=== PATIENT | female | born 1945 | race Caucasian/White ===

== ENCOUNTER → 2021-07-17 09:43 | Outpatient (BNVA) | payer MEDICARE, MEDICAID, SELFPAY | PROVIDERS: PCP Family Medicine; Visit Provider Internal Medicine | DX: M25.50 Pain in unspecified joint (principal); M79.643 Pain in unspecified hand; E55.9 Vitamin D deficiency, unspecified; Z11.59 Encounter for screening for other viral diseases; Z11.1 Encounter for screening for respiratory tuberculosis; R79.89 Other specified abnormal findings of blood chemistry | CPT/HCPCS: 36415; 80053; 82728; 83540; 85025; 85651; 86140; 86160; 86162; 86200; 86235; 86255; 86376; 86431; 86480; 86704; 86803; 87340; 99204; 99214 ==

== ENCOUNTER 2021-07-17 11:28 | Outpatient (CLI) | payer MEDICARE, SELFPAY ==
[2021-07-17 12:04] LABS: Basophils # 0.1 10^3/uL (0.0-0.1); Basophils % 0.9 %; Eosinophils # 0.2 10^3/uL (0.0-0.8); Eosinophils % 1.7 %; Hematocrit 41.8 % (37.0-47.0); Hemoglobin 13.4 g/dL (11.5-15.3); Lymphocytes # 2.3 10^3/uL (0.8-4.8); Lymphocytes % 23.4 %; Mean Corpuscular HGB Conc 32.1 g/dL (30.0-36.0); Mean Corpuscular Hemoglobin 29.6 pg (28.0-34.0); Mean Corpuscular Volume 92.5 fl (81-99); Mean Platelet Volume 10.6 fL (7.4-10.4); Monocytes # 0.8 10^3/uL (0.2-0.9); Monocytes % 8.4 %; Neutrophils % 65.4 %; Nucleated Red Blood Cells % 0 %; Platelet Count 264 10^3/cmm (130-400); Red Blood Count 4.52 10^6/uL (4.1-5.3); Red Cell Distribution Width 12.7 % (12.1-15.1); White Blood Count 9.9 10^3/uL (4.0-10.0)
[2021-07-17 12:34] LABS: Alanine Aminotransferase 13 U/L (0-33); Albumin Level 4.2 g/dL (3.5-5.2); Alkaline Phosphatase 78 IU/L (35-105); Anion Gap 16.1 (5-19); Aspartate Amino Transferase 15 U/L (0-32); Blood Urea Nitrogen 18 mg/dL (8-23); C Reactive Protein 5.4 mg/L (0.0-4.9); Carbon Dioxide 24 mmol/L (22-29); Chloride 101 mmol/L (98-107); Ferritin 98 ng/mL (15-150); Globulin 3.1 g/dL (1.3-4.6); Glucose 86 mg/dL (65-115); Iron 71 ug/dL (37-145); Osmolality Calculated 285 mOsm/kg (285-295); Potassium 4.1 mmol/L (3.5-5.1); Sodium 137 mmol/L (136-145); Total Bilirubin 0.4 mg/dL (0.15-1.2); Total Protein 7.3 g/dL (6.6-8.7)
[2021-07-17 12:51] LABS: Hepatitis B Core AB, Total Non-Reactive (Nonreactive); Hepatitis B Surface Antigen Non-Reactive (Nonreactive); Hepatitis C Virus Antibody Non-Reactive (Nonreactive)
[2021-07-18 12:18] LABS: COMPLEMENT COMPONENT C3C 158 mg/dL (83-193); COMPLEMENT COMPONENT C4C 43 mg/dL (15-57)
[2021-07-18 14:00] LABS: Erythrocyte Sedimentation Rate 11 mm/hr (0-15)
[2021-07-18 14:22] LABS: CENTROMERE B ANTIBODY <1.0 NEG AI (<1.0 NEG); JO-1 ANTIBODY <1.0 NEG AI (<1.0 NEG); RNP ANTIBODY <1.0 NEG AI (<1.0 NEG); SCL-70 ANTIBODY <1.0 NEG AI (<1.0 NEG); SJOGREN'S ANTIBODY (SS-A) <1.0 NEG AI (<1.0 NEG); SM ANTIBODY <1.0 NEG AI (<1.0 NEG); SS-B <1.0 NEG AI (<1.0 NEG)
[2021-07-18 15:08] LABS: COMPLEMENT, TOTAL (CH50) >60 U/mL (31-60)
[2021-07-18 15:41] LABS: THYROID PEROXIDASE ANTIBODIES 1 IU/mL (<9)
[2021-07-18 16:48] LABS: Cyclic Citrullinated Peptide <16 UNITS
[2021-07-21 13:11] LABS: Quantiferon Mitogen 9.78 IU/mL; Quantiferon Nil 0.04 IU/mL; Quantiferon Plus TB1 <0.00 IU/mL; Quantiferon Plus TB2 <0.00 IU/mL; Quantiferon TB Gold NEGATIVE (NEGATIVE)
[2021-07-21 15:43] LABS: ANA SCREEN, IFA NEGATIVE (NEGATIVE)
[2021-07-22 14:17] LABS: DNA AB (DS) CRITHIDIA,IFA NEGATIVE (NEGATIVE)
== END 2021-07-17 11:29 | disposition home or self-care (01) ==
PROVIDERS: PCP Family Medicine; Visit Provider Internal Medicine
DX: M25.50 Pain in unspecified joint (principal); M79.643 Pain in unspecified hand; R79.89 Other specified abnormal findings of blood chemistry; Z11.59 Encounter for screening for other viral diseases; Z11.1 Encounter for screening for respiratory tuberculosis
CPT/HCPCS: 36415; 80053; 82728; 83540; 85025; 85651; 86140; 86160; 86162; 86200; 86235; 86255; 86376; 86431; 86480; 86704; 86803; 87340

== ENCOUNTER → 2021-08-05 11:18 | Outpatient (BNVA) | payer MEDICARE, MEDICAID, SELFPAY | PROVIDERS: PCP Family Medicine; Visit Provider Internal Medicine | DX: M79.643 Pain in unspecified hand (principal); M25.519 Pain in unspecified shoulder; E55.9 Vitamin D deficiency, unspecified; R79.82 Elevated C-reactive protein (CRP) | CPT/HCPCS: 20610; 99214; J1030 ==

== ENCOUNTER 2023-06-23 09:33 | Outpatient (CLI) | payer MEDICARE, MEDICAID, SELFPAY ==
--- NOTE | 2023-06-23 09:50 | CT_ITS ---
WS: [id number] CT chest wo con [id number] HISTORY: PULMONARY NODULE TECHNIQUE: Axial imaging performed through the thorax. Coronal and sagittal reformats are submitted. All CT scans at [facility] use at least one of these dose optimization techniques: automated exposure control; mA and/or kV adjustment per patient size (includes targeted exams where dose is mat ched to clinical indication); or iterative reconstruction. CONTRAST: None DLP: 525.57 mGy.cm COMPARISON: None available. Lungs and central airway: Normal pulmonary inflation. There is a benign calcified granuloma at the LE FT lung base. There are additional subcentimeter nodules which are noncalcified. 5.5 mm noncalcified nodule LEFT upper lobe, image 18 of series 4. Additional 3 mm nodule RIGHT upper lobe image 20 series 4. There are a few micronodules scattered throughout both lungs. No mass. No pneumonia. Pleura: Normal. No pleural effusion. Heart and pericardium: Mild LEFT heart enlargement. No pericardial effusion. Mediastinum and jabier: No mediastinum or hilar adenopathy. Vessels: Normal size aortic and pulmonary artery. No coronary artery calcifications. Chest wall and lower neck: No soft tissue masses. Upper abdomen: Cholelithiasis. Numerous stones are present in the gallbladder lumen. Hepatic 6 mm low -attenuation mass in the RIGHT lobe of the liver may be a small cyst. Too small to characterize on th is unenhanced exam. No adrenal mass. Osseous structures: No destructive process. IMPRESSION: 1. Bilateral upper lobe pulmonary nodules. The largest is 5.5 mm in the LEFT upper lobe. Recommend fo llow-up chest CT in 6 months. 2. Benign granuloma LEFT lower lobe. 3. Cholelithiasis. Numerous stones in the gallbladder. 4. Mild LEFT heart enlargement.
== END 2023-06-23 09:34 | disposition home or self-care (01) ==
PROVIDERS: PCP Family Medicine; Visit Provider Family Medicine
DX: J84.10 Pulmonary fibrosis, unspecified (principal); R91.1 Solitary pulmonary nodule; I51.7 Cardiomegaly
CPT/HCPCS: 71250

== ENCOUNTER 2024-01-18 10:34 | Outpatient (CLI) | payer MEDICARE, MEDICAID, SELFPAY ==
--- NOTE | 2024-01-18 10:41 | CT_ITS ---
WS: [id number] CT chest wo con [id number] HISTORY: MULTIPLE PULMONARY NODULES TECHNIQUE: Axial imaging performed through the thorax. Coronal and sagittal reformats are submitted. [facility] use at least one of these dose optimization techniques: automated exposure control; mA and/or kV adjustment per patient size (includes targeted exams where dose is mat ched to clinical indication); or iterative reconstruction. CONTRAST: None DLP: 477.75 mGy.cm COMPARISON: 06/23/2023 Lungs and central airway: No interval change in the bilateral 5 mm upper lobe nodules. The LEFT upper lobe nodule is slightly larger in size. No new mass or nodule is identified. No pneumonia. Benign ca lcified granuloma LEFT lung base. Pleura: Normal. No pleural effusion. Heart and pericardium: Mild cardiomegaly. Mediastinum and jabier: No mediastinum or hilar adenopathy. Vessels: Mild atherosclerosis aorta. Normal size pulmonary artery. Chest wall and lower neck: No soft tissue masses. Upper abdomen: Cholelithiasis. Incompletely visualized low-attenuation nodule in the RIGHT lobe of th e liver. Fatty replacement of the pancreas. Osseous structures: Thoracolumbar scoliosis. CT/CT chest wo con [id number] IMPRESSION: 1. No interval change in the bilateral upper lobe pulmonary nodules or granulo [place]. Consider 12-month noncontrast chest CT follow-up to document long-term st ability. 2. Cholelithiasis without acute cholecystitis. 3. Mild atherosclerosis aorta.
== END 2024-01-18 10:35 | disposition home or self-care (01) ==
LOC: RAD 10:35
PROVIDERS: PCP Family Medicine; Visit Provider Family Medicine
DX: R91.8 Other nonspecific abnormal finding of lung field (principal); J84.10 Pulmonary fibrosis, unspecified; I51.7 Cardiomegaly; K80.20 Calculus of gallbladder without cholecystitis without obstruction; M41.35 Thoracogenic scoliosis, thoracolumbar region
CPT/HCPCS: 71250